=== PATIENT | female | born 2000 | race Two or more races ===

== ENCOUNTER 2025-05-22 19:30 | Emergency (ER) | payer OTHER ==
[~2025-05-22] VITALS: Ht 160 cm; Wt 72.7 kg
[2025-05-22] MEDS: LevETIRAcetam 1,000 MG in DEXTROSE 5%-WATER 100 ML IV ONE (20:49)
[2025-05-22] MEDS: ONDANSETRON HCL 4 MG/2 ML VIAL IVP ONE (20:49)
[2025-05-22 21:05] LABS: PLATELET COUNT (AUTO) 239 K/uL (150-450); RED BLOOD CELL COUNT(AUTO) 4.71 MIL/uL (4.00-5.20); RED CELL DISTRIBUTION WIDTH 12.8 % (11.5-14.5); WHITE BLOOD COUNT (AUTO) 8.2 K/uL (4.5-11.0)
[2025-05-22 21:12] LABS: CALCIUM, TOTAL 8.9 mg/dL (8.8-10.5); CREATININE 0.87 mg/dL (0.60-1.30); GLOMERULAR FILTR. RATE CALC > 60 mL/min (>60); GLUCOSE,RANDOM 88 mg/dL (70-110); SODIUM SERUM 137 mmol/L (136-145); UREA NITROGEN, BLOOD 20 mg/dL (7-18)
[2025-05-22] MEDS ORDERED: SODIUM CHLORIDE 0.9% 100 ML ONE (21:13)
[2025-05-22] MEDS ORDERED: IOHEXOL 350 MG/ML 100 ML VIAL ONE (21:13)
[2025-05-22 21:16] LABS: ALCOHOL, BLOOD (SERUM) < 3 mg/dL (0-10)
[2025-05-22 21:22] LABS: TROPONIN I-HIGH SENSITIVITY 5 ng/L (<51)
[2025-05-22 21:24] LABS: ASPARTATE AMINOTRANSFERASE 16 U/L (15-37); HCG,QUANTITATIVE < 1 mIU/mL (0-6); TOTAL PROTEIN, SERUM 6.9 g/dL (6.4-8.2)
[2025-05-22] MEDS: LORazepam 2 MG/ML VIAL IVP ONE (21:48)
[2025-05-22 23:37] LABS: APPEARANCE,URINE CLEAR (CLEAR); GLUCOSE, URINE (UA) NEGATIVE (NEGATIVE); LEUKOCYTE ESTERASE ,URINE MODERATE (NEGATIVE); NITRATE,URINE NEGATIVE (NEGATIVE); OCCULT BLOOD,URINE MODERATE (NEGATIVE); PH,URINE DRUG SCREEN 8.0 (5.0-8.0)
[2025-05-22 23:45] LABS: ALCOHOL, URINE DRUG SCREEN NEGATIVE (NEGATIVE); AMPHET/METH SCREEN,URINE NEGATIVE (NEGATIVE); BARBITURATE SCREEN, URINE NEGATIVE (NEGATIVE); CANNABINOID SCREEN,URINE POSITIVE (NEGATIVE); COCAINE SCREEN,URINE NEGATIVE (NEGATIVE); METHADONE SCREEN, URINE NEGATIVE (NEGATIVE)
[2025-05-23] LABS: SPECIFIC GRAVITIY, URINE 1.030 (1.003-1.030)
[2025-05-23] MEDS ORDERED: CEPH-558 PO (00:10)
[2025-05-23 00:15] LABS: SQUAMOUS EPITHELIAL CELL,UR Few /LPF (None Seen)
[2025-05-23 00:25] VITALS: BP 109/63; PULSE 72; RESP 16; TEMP 97.7; O2SAT 100
== END 2025-05-23 00:50 | disposition home or self-care (01) ==
LOC: EMS 22:02
DX: S09.90XA Unspecified injury of head, initial encounter (principal); R11.2 Nausea with vomiting, unspecified; F41.9 Anxiety disorder, unspecified; N39.0 Urinary tract infection, site not specified; F12.90 Cannabis use, unspecified, uncomplicated; N89.8 Other specified noninflammatory disorders of vagina; W19.XXXA Unspecified fall, initial encounter; Y93.89 Activity, other specified; Y92.89 Other specified places as the place of occurrence of the external cause; Y99.8 Other external cause status
CPT/HCPCS: 99291; 72125; 96374; 96375; 71045; 80053; 81001; 83735; 84484; 84702; 85025; 85610; 85730; 86850; 86900; 86901; 36415; 70496; 70498; 80307; 70450; J0712; G0480; Q9967; J2060; J2405; J7060; J7050